=== PATIENT | male | born 1985 | race Caucasian/White ===

== ENCOUNTER 2021-08-21 10:09 | Emergency (ER) | payer OTHER ==
[~2021-08-21] VITALS: Ht 188 cm; Wt 102.0 kg
[2021-08-21 10:35] VITALS: BP 140/88
--- NOTE | 2021-08-21 10:55 | PHYS DOC ---
General Adult EDM: Chief Complaint: FLU SYMPTOM HPI: HPI: Patient is a 36-year-old male who presents to the emergency department for headache and body aches that started 3 days ago. Patient denies any cough, sore throat, nausea, vomiting, fevers, shortness of breath. Patient's entire family has COVID-19 symptoms. (MELECIO ALBARADO APRN) Review of Systems: Review of Systems: Constitutional: negative unless reported in HPI Eyes: negative unless reported in HPI HENT: negative unless reported in HPI Respiratory: negative unless reported in HPI Cardiovascular: negative unless reported in HPI GI: negative unless reported in HPI : negative unless reported in HPI Musculoskeletal: negative unless reported in HPI Integument: negative unless reported in HPI Neurologic: negative unless reported in HPI Endocrine: negative unless reported in HPI Lymphatic: negative unless reported in HPI Psychiatric: negative unless reported in HPI (MELEICO ALBARADO APRN) Physical Exam: PE: Constitutional: Well developed, well nourished, no acute distress, non-toxic appearance. [] HENT: Normocephalic, atraumatic, bilateral external ears normal, oropharynx moist, no oral exudates, nose normal. [] Eyes: PERRL, EOMI, conjunctiva normal, no discharge. [] Neck: Normal range of motion, no stridor Cardiovascular: Normal peripheral perfusion Lungs & Thorax: Normal work of breathing, no tachypnea Abdomen: Soft and flat Skin: Warm, dry, no erythema, no rash. [] Back: Normal range of motion Extremities: No tenderness, no cyanosis, no clubbing, ROM intact, no edema. [] Neurologic: Alert and oriented X 3, normal motor function, normal sensory fu nction, no focal deficits noted. [] Psychologic: Affect normal, judgement normal, mood normal. [] (MELECIO ALBARADO APRN) EKG: EKG: [] (MELECIO ALBARADO APRN) Radiology/Procedures: Radiology/Procedures: [] (MELECIO ALBARADO APRN) Heart Score: C/O Chest Pain: N/A Risk Factors: Risk Factors: DM, Current or recent (<one month) smoker, HTN, HLP, family history of CAD, obesity. Risk Scores: Score 0 - 3: 2.5% MACE over next 6 weeks - Discharge Home Score 4 - 6: 20.3% MACE over next 6 weeks - Admit for Clinical Observation Score 7 - 10: 72.7% MACE over next 6 weeks - Early Invasive Strategies (MELCEIO ALBARADO APRN) Course & Med Decision Making: Course & Med Decision Making Pertinent Labs and Imaging studies reviewed. (See chart for details) [] Patient presents to the emergency department for headache and body aches. Reports his symptoms are mild. Patient's entire family has COVID-19 symptoms consisting of cough, fever, sore throat, body aches. I was notified that we have a shortage of COVID-19 test at this facility. I discussed with the patient testing him for COVID-19 given that his entire family has similar complaints. Patient states that he can get tested at his workplace and would like his and his daughter to be tested for COVID-19. Patient urged to get tested for COVID-19 at his workplace. Patient educated on symptomatic treatment. Patient's vital signs are stable, physical exam reassuring and he is in no acute distress. I discussed with patient all findings and diagnostic testing as well as the need to follow-up with PCP for further evaluation and treatment or return to the ER if any new or worsening symptoms. Strict return precautions were also discussed at length. Patient voiced understanding and agreement with the plan. Patient is hemodynamically stable at the time of disposition. (MELECIO ALBARADO APRN) Dragon Disclaimer: Dragon Disclaimer: This electronic medical record was generated, in whole or in part, using a voice recognition dictation system. (MELECIO ALBARADO APRN) Attending Co-Sign The patient was seen and interviewed as well as examined at the bedside. The chart was reviewed. The case was discussed. Agree with the plan of care. (TOMMY HAMEED DO) Departure Departure: Impression: Primary Impression: Person under investigation for COVID-19 Disposition: HOME / SELF CARE / HOMELESS Condition: GOOD Referrals: HILTON ROBERTS (PCP) Patient Instructions: Myalgia, Adult Additional Instructions: You were seen in the emergency department today for headache and body aches. Given the fact that your is COVID-positive, you can assume that the entire family has COVID-19 as they are symptomatic but their viral load may not be high enough for them to test positive with the rapid test. Please self isolate and quarantine per CDC guidelines. Please continue symptomatic treatment including Tylenol and ibuprofen for your headache and body aches. Please get COVID tested at your workplace. Follow-up with your primary care provider tomorrow regarding your ER visit. Return to the emergency department if you develop high fevers refractory to treatment, tractable nausea vomiting, shortness of breath, chest pain, lethargy. MELECIO ALBARADO APRN Aug 21, 2021 10:55 TOMMY HAMEED DO Aug 22, 2021 09:45
== END 2021-08-21 11:40 | disposition home or self-care (01) ==
LOC: ER 10:09
DX: R51.9 Headache, unspecified (principal); M79.10 Myalgia, unspecified site; Z20.822 Contact with and (suspected) exposure to COVID-19
CPT/HCPCS: 99282; 99283